=== PATIENT | female | born 1965 | race Caucasian/White ===

== ENCOUNTER → 2016-08-04 | Outpatient (CLI) | payer OTHER ==
[2016-08-04 08:05] LABS: Basophils % (A) 1 %; CH 29.9; CHCM 33.3; Eosinophils # (A) 0.2 k/uL (0-0.7); Eosinophils % (A) 3 %; HCT 40.8 % (34.0-46.0); HGB 13.2 gm/dL (11.4-16.0); Luc # (Auto) 0.15; Luc % (Auto) 3; Lymphocytes # (A) 1.8 k/uL (1.0-4.8); Lymphocytes % (A) 32 %; MCH 29.1 pg (25.0-35.0); MCHC 32.3 g/dL (31.0-37.0); MCV 90.1 fL (80.0-100.0); Mean Platelet Volume 8.8; Monocytes # (A) 0.3 k/uL (0-1.0); Monocytes % (A) 6 %; Neutrophils # (A) 3.2 k/uL (1.3-7.7); Neutrophils % (A) 56 %; RBC 4.53 m/uL (3.80-5.40); RDW 13.1 % (11.5-15.5); WBC 5.7 k/uL (3.8-10.6); WBC (Perox) 5.89
[2016-08-04 08:22] LABS: ALT 57 U/L (9-52); AST 33 U/L (14-36); Alkaline Phosphatase 47 U/L (38-126); Anion Gap 12 mmol/L; Blood Urea Nitrogen 17 mg/dL (7-17); Calcium 9.1 mg/dL (8.4-10.2); Carbon Dioxide 25 mmol/L (22-30); Chloride 106 mmol/L (98-107); Cholesterol 229 mg/dL (<200); Glucose 128 mg/dL (74-99); HDL Cholesterol 55 mg/dL (40-60); Non-African American GFR(MDRD) >60 (>60 ml/min/1.73 sqM); Sodium 143 mmol/L (137-145); Total Bilirubin 0.7 mg/dL (0.2-1.3); Total Protein 6.8 g/dL (6.3-8.2); Triglycerides 187 mg/dL (<150)
== END | disposition home or self-care (01) ==
LOC: LABWHC1 07:31
PROVIDERS: ATTEND Family Medicine
DX: I10 Essential (primary) hypertension (principal); Z13.220 Encounter for screening for lipoid disorders
CPT/HCPCS: 36415; 80053; 80061; 84443; 85025

== ENCOUNTER 2017-04-02 11:56 | Day surgery (SDC) | payer BC, OTHER ==
[2017-03-31 09:43] VITALS: BMI 29.5
[~2017-04-02 11:56] MED LIST: LACTATED RINGERS 1,000 ML IV SCH
[2017-04-02 12:17] VITALS: TEMP 97.1
[2017-04-02] MEDS ORDERED: LIDOCAINE 1% 20 ML VIAL (10MG/ML) FOR IV START INTRADERMA ONE (12:25)
[2017-04-02] MEDS ORDERED: MIDAZOLAM 2 MG/2 ML VIAL ONE (12:30)
[2017-04-02] MEDS ORDERED: PROPOFOL 10 MG/ML 20 ML VIAL IV ONE (12:30)
[2017-04-02] MEDS ORDERED: LIDOCAINE 1% INJ 10MG/ML (20 ML MDV) ONE (12:30)
--- NOTE | 2017-04-02 12:34 | P.GSHP ---
History of Present Illness H&P Date: 04/02/17 Chief Complaint: Colon cancer screening Patient here today for colonoscopy. She has never had 1 previously. No bowel related complaints. No family history of colon cancer. Past Medical History Past Medical History: Hypertension History of Any Multi-Drug Resistant Organisms: None Reported Past Surgical History: Uterine Ablation Past Anesthesia/Blood Transfusion Reactions: Previous Problems w/ Anesthesia Additional Past Anesthesia/Blood Transfusion Reaction / Comment(s): anxious prior to procedure Smoking Status: Never smoker - Past Family History Mother Family Medical History: No Reported History Medications and Allergies Home Medications Medication Instructions Recorded Confirmed Type Cholecalciferol [Vitamin D3] 1,000 unit PO DAILY 03/31/17 04/02/17 History Longevity Supplement 1 tab PO DAILY 03/31/17 History Metoprolol Tartrate [Lopressor] 25 mg PO QAM 03/31/17 04/02/17 History Allergies Allergy/AdvReac Type Severity Reaction Status Date / Time No Known Allergies Allergy Verified 03/31/17 09:38 Surgical - Exam Vital Signs Temp Pulse Resp BP Pulse Ox 97.1 F L 70 16 181/90 94 L 04/02/17 12:16 04/02/17 12:16 04/02/17 12:16 04/02/17 12:16 04/02/17 12:16 Physical exam: General: Well-developed, well-nourished HEENT: Normocephalic, sclerae nonicteric Abdomen: Nontender, nondistended Extremities: No edema Neuro: Alert and oriented Assessment and Plan (1) Colon cancer screening Narrative/Plan: Will proceed with colonoscopy at this time. Current Visit: Yes Status: Acute Code(s): Z12.11 - ENCOUNTER FOR SCREENING FOR MALIGNANT NEOPLASM OF COLON SNOMED Code(s): 380637613
--- NOTE | 2017-04-02 12:52 | P.PCN ---
Date of Procedure: 04/02/17 Procedure(s) Performed: PREOPERATIVE DIAGNOSIS: Screening POSTOPERATIVE DIAGNOSIS: Mild diverticulosis PROCEDURE: Colonoscopy ANESTHESIA: MAC SURGEON: Kenny Morales M.D. SPECIMENS: None ENDOSCOPIC PROCEDURE: The patient was placed on the endoscopy table in the left decubitus position. The Olympus colonoscope was inserted into the anus and passed under direct visualization to the base of the cecum. The appendiceal orifice was visualized. From that point the scope was slowly withdrawn inspecting all surfaces carefully. There were no neoplastic inflammatory or polypoid lesions throughout the cecum, ascending, transverse, descending, sigmoid and rectum. There was mild diverticulosis noted throughout the colon. Digital rectal examination was normal. The patient was taken to the recovery room in stable condition per anesthesia guidelines. RECOMMENDATIONS: Increase fiber. Follow-up colonoscopy in 10 years.
[2017-04-02 13:03] VITALS: RESP 16
[2017-04-02 13:06] VITALS: BP 139/89; PULSE 93
== END 2017-04-02 13:59 | disposition home or self-care (01) ==
LOC: ORWHC2ENDO 11:56
PROVIDERS: ATTEND Surgery
DX: Z12.11 Encounter for screening for malignant neoplasm of colon (principal); K57.30 Diverticulosis of large intestine without perforation or abscess without bleeding; I10 Essential (primary) hypertension; Z79.899 Other long term (current) drug therapy
CPT/HCPCS: 81025; J2250; J2001; J2704; G0121; 45380

== ENCOUNTER → 2018-03-22 | Outpatient (CLI) | payer BC ==
[2018-03-22 15:21] LABS: Basophils % (A) 1 %; Eosinophils # (A) 0.2 k/uL (0-0.7); Eosinophils % (A) 3 %; HCT 42.2 % (34.0-46.0); HGB 13.6 gm/dL (11.4-16.0); Lymphocytes # (A) 2.1 k/uL (1.0-4.8); Lymphocytes % (A) 34 %; MCH 29.3 pg (25.0-35.0); MCHC 32.3 g/dL (31.0-37.0); MCV 90.8 fL (80.0-100.0); Mean Platelet Volume 8.9; Monocytes # (A) 0.3 k/uL (0-1.0); Monocytes % (A) 5 %; Neutrophils # (A) 3.6 k/uL (1.3-7.7); Neutrophils % (A) 57 %; Platelet Count 191 k/uL (150-450); RBC 4.65 m/uL (3.80-5.40); RDW 12.6 % (11.5-15.5); WBC 6.3 k/uL (3.8-10.6)
[2018-03-22 23:30] LABS: Hemoglobin A1C 6.5 % (4.0-6.0)
== END | disposition home or self-care (01) ==
LOC: LABWHC1 14:30
PROVIDERS: ATTEND Family Medicine
DX: I10 Essential (primary) hypertension (principal); R73.9 Hyperglycemia, unspecified
CPT/HCPCS: 36415; 83036; 85025

== ENCOUNTER → 2018-03-22 | Outpatient (CLI) | payer BC ==
[2018-03-22 13:48] VITALS: BP 146/86; PULSE 65; TEMP 97.8; BMI 29.8
--- NOTE | 2018-03-22 16:34 | P.HPOB ---
History of Present Illness H&P Date: 03/22/18 Chief Complaint: The patient is here for her routine gynecologic exam and mammogram. This is a 53-year-old with an LMP of 2010. The patient has been an amenorrheic since her endometrial ablation in 2010. The patient is without gynecologic complaints. Her 's status post vasectomy. Review of Systems The patient's weight has been stable over the last year. She denies respiratory , cardiac, or G.I. problems. 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 She is status post endometrial ablation in 2010 with resulting amenorrhea. History of Any Multi-Drug Resistant Organisms: None Reported Past Surgical History: Uterine Ablation (2010) Additional Past Surgical History / Comment(s): D&C. Past Anesthesia/Blood Transfusion Reactions: Previous Problems w/ Anesthesia Additional Past Anesthesia/Blood Transfusion Reaction / Comment(s): anxious prior to procedure Past Psychological History: No Psychological Hx Reported Smoking Status: Never smoker Past Alcohol Use History: Occasional (10 per week) Past Drug Use History: None Reported Additional History: She has been since 1989. She works at [employer]. - Past Family History Mother Family Medical History: No Reported History Father Family Medical History: CVA/TIA Brother(s) Family Medical History: Diabetes Mellitus, Myocardial Infarction ([place]) Medications and Allergies Home Medications Medication Instructions Recorded Confirmed Type Longevity Supplement 1 tab PO DAILY 03/31/17 03/22/18 History Metoprolol Tartrate [Lopressor] 25 mg PO QAM 03/31/17 03/22/18 History Calcium Carbonate [Calcium] mg PO DAILY 03/22/18 History Multivitamin [Multivitamins Adult tab PO DAILY 03/22/18 History Gummies] Vit B Complx C/Folic Acid/Zinc PO DAILY 03/22/18 History [Renaplex Tablet] Allergies Allergy/AdvReac Type Severity Reaction Status Date / Time No Known Allergies Allergy Verified 03/22/18 13:44 Exam Vital Signs Temp Pulse BP 03/22/18 13:45 97.8 F 65 146/86 Intake and Output 03/22/18 03/22/18 03/22/18 06:59 14:59 22:59 Other: Weight 78.925 kg Height 5'4", weight 174 pounds, BMI 29.9. This is a well-developed well-nourished white female who is alert and oriented times 3 in no acute distress. HEENT: Within normal limits. NECK: Supple without mass or thyromegaly. CHEST AND LUNGS: Clear to auscultation. HEART: Regular rate and rhythm. BREASTS: Are without mass or discharge. AXILLARY EXAM: Negative for adenopathy. BACK: Negative for CVA tenderness. ABDOMEN: Soft, nontender, without palpable masses. PELVIC EXAM: Normal external genitalia. Cervix and vagina appear normal. There is no unusual discharge. There is no evidence of prolapse. The uterus is midposition, nongravid size and nontender. There are no palpable adnexal masses or tenderness. RECTAL EXAM: rectovaginal exam is negative for mass or tenderness and is negative for occult blood. EXTREMITIES: Nontender. IMPRESSION: 1. 53-year-old perimenopausal female whose is status post vasectomy with normal gynecologic exam. 2. The patient has been amenorrheic since her ablation in 2010. PLAN: 1. Pap smear was deferred since her last one was negative less than 2 years ago. 2. Self breast awareness was discussed with the patient. 3. Screening mammogram will be done today. 4. Osteoporosis prevention was discussed. 5. Lab studies will be done through Dr. Kirstin Morales. She has the order slip for this. 6. She will return one year.
--- NOTE | 2018-03-24 09:55 | MM ---
Reason for exam: screening (asymptomatic). Last mammogram was performed 2 years ago. Physical Findings: A clinical breast exam by your physician is recommended on an annual basis and results should be correlated with mammographic findings. MG 3D Screening Mammo W/Cad Bilateral CC and MLO view(s) were taken. Prior study comparison: March 31, 2016, bilateral MG 3d screening mammo w/cad. January 19, 2013, bilateral digital screening mammo w/CAD. The breast tissue is heterogeneously dense. This may lower the sensitivity of mammography. Stable small area of fat necrosis calcifications on the left. No significant changes when compared with prior studies. ASSESSMENT: Negative, BI-RAD 1 RECOMMENDATION: Routine screening mammogram of both breasts in 1 year.
== END | disposition home or self-care (01) ==
LOC: WWCWWP 13:13
PROVIDERS: ATTEND Obstetrics & Gynecology
DX: Z12.31 Encounter for screening mammogram for malignant neoplasm of breast (principal)
CPT/HCPCS: 77063; 77067

== ENCOUNTER → 2018-12-01 | Outpatient (CLI) | payer BC ==
--- NOTE | 2018-12-01 11:28 | US ---
EXAMINATION TYPE: US gallbladder DATE OF EXAM: 12/01/2018 COMPARISON: CT 08/25/2012 CLINICAL HISTORY: R10.11 Right upper quadrant pain. GERD, RUQ pain after eating, digestive issues EXAM MEASUREMENTS: Liver Length: 17.6 cm Gallbladder Wall: 0.1 cm CBD: 0.3 cm Right Kidney: 9.8 x 4.2 x 4.5 cm Pancreas: There is inhomogeneity of the pancreas with slight downstream ductal prominence marked on image 4/56. This is seen within the pancreatic body. Liver: measuring upper limits of normal. There is increased echogenicity of the hepatic parenchyma with diminished visualization of the portal triads most commonly relating to hepatic steatosis and li miting evaluation for underlying hepatic masses. Gallbladder: wnl Evidence for sonographic Vines's sign: No CBD: wnl, distal portion obscured bowel gas Right Kidney: No hydronephrosis or masses seen IMPRESSION: 1. Inhomogeneity within the pancreatic body and slight ductal prominence. Correlate with serum amylas e and lipase and CA-19-9. CT pancreatic mass protocol could further evaluate for pancreatitis or unde rlying pancreatic mass. 2. Sonographic findings most commonly related to hepatic steatosis appearing moderate in degree.
== END | disposition home or self-care (01) ==
LOC: RADUSWWP 10:45
PROVIDERS: ATTEND Family Medicine
DX: R10.11 Right upper quadrant pain (principal)
CPT/HCPCS: 76705

== ENCOUNTER → 2021-01-22 | Outpatient (CLI) | payer BC ==
--- NOTE | 2021-01-24 12:38 | MM ---
Reason for exam: screening (asymptomatic). Last mammogram was performed 2 years and 10 months ago. Physical Findings: A clinical breast exam by your physician is recommended on an annual basis and results should be correlated with mammographic findings. MG 3D Screening Mammo W/Cad Bilateral CC and MLO view(s) were taken. Prior study comparison: March 22, 2018, bilateral MG 3d screening mammo w/cad. The breast tissue is heterogeneously dense. This may lower the sensitivity of mammography. Stable course grouped calcifications left breast. No significant changes when compared with prior studies. ASSESSMENT: Negative, BI-RAD 1 RECOMMENDATION: Routine screening mammogram of both breasts in 1 year.
== END | disposition home or self-care (01) ==
LOC: RADMAMWWP 09:27
PROVIDERS: ATTEND Obstetrics & Gynecology
DX: Z12.31 Encounter for screening mammogram for malignant neoplasm of breast (principal)
CPT/HCPCS: 77063; 77067

== ENCOUNTER → 2021-01-22 | Outpatient (CLI) | payer BC ==
[2021-01-22 08:24] VITALS: BP 150/93; PULSE 54; RESP 14; TEMP 98.2
--- NOTE | 2021-01-22 09:48 | P.HPOB ---
History of Present Illness H&P Date: 01/22/21 Chief Complaint: The patient is here for her routine gynecologic exam and ma mmogram. This is a 56-year-old with an LMP of 2010. The patient's is status post vasectomy. She is status post endometrial ablation in 2010 and has been amenorrheic since then except for some pink spotting that she had 2 days ago. She states she was not having any unusual pain at the time, but 1 hour later had a small amount of cramping. She has not had bleeding since then. She denies any significant hot flashes and has not had any significant hot flashes since her endometrial ablation. She states she was not sexually active around the time when she had the spotting. She is otherwise without gynecologic complaints. Review of Systems She is down about 2 pounds from her weight 3 years ago. She denies respiratory or cardiac problems. GI: Occasional heartburn with certain types of food including flour tortillas. She states she has been trying to eat less gluten and this seems to be helpful for the heartburn. 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 She has been amenorrheic following her endometrial ablation in 2010. History of Any Multi-Drug Resistant Organisms: None Reported Past Surgical History: Uterine Ablation Additional Past Surgical History / Comment(s): Endometrial ablation in 2010. D&C 1996. Colonoscop 2015(next after 10y) Past Anesthesia/Blood Transfusion Reactions: Previous Problems w/ Anesthesia Additional Past Anesthesia/Blood Transfusion Reaction / Comment(s): anxious prior to procedure Past Psychological History: No Psychological Hx Reported Smoking Status: Never smoker Past Alcohol Use History: Occasional (About 10 per week) Past Drug Use History: None Reported Additional History: She is been since 1989 and works at [employer]. - Past Family History Mother Family Medical History: Diabetes Mellitus Father Family Medical History: CVA/TIA Additional Family Medical History / Comment(s): . Brother(s) Family Medical History: Diabetes Mellitus, Myocardial Infarction ([place]) Medications and Allergies Home Medications Medication Instructions Recorded Confirmed Type Metoprolol Tartrate [Lopressor] 100 mg PO QAM 03/31/17 01/22/21 History Multivitamin [Multivitamins Adult 1 tab PO DAILY 10/16/18 08/18/21 History Gummies] Rosuvastatin [Crestor] 10 mg PO DAILY 01/22/21 01/22/21 History Allergies Allergy/AdvReac Type Severity Reaction Status Date / Time No Known Allergies Allergy Verified 01/22/21 08:09 Exam Vital Signs Temp Pulse Resp BP 01/22/21 08:09 98.2 F 54 L 14 150/93 Intake and Output 01/21/21 01/22/21 01/22/21 22:59 06:59 14:59 Other: Weight 78.018 kg Height 5 feet 4 inches, weight 172 pounds, BMI 29.5. This is a well-developed well-nourished white female who is alert and oriented times 3 in no acute distress. HEENT: Within normal limits. NECK: Supple without mass or thyromegaly. CHEST AND LUNGS: Clear to auscultation. HEART: Regular rate and rhythm. BREASTS: Are without mass or discharge. AXILLARY EXAM: Negative for adenopathy. BACK: Negative for CVA tenderness. ABDOMEN: Soft, nontender, without palpable masses. PELVIC EXAM: Normal external genitalia. Cervix and vagina appear normal. There is no unusual discharge and no blood visible in the vagina. There is no evidence of prolapse. The uterus is midposition, nongravid size and nontender. There are no palpable adnexal masses or tenderness. RECTAL EXAM: Rectovaginal exam is negative for mass or tenderness and is negative for occult blood. EXTREMITIES: Nontender. IMPRESSION: 1. 56-year-old perimenopausal female whose is status post vasectomy, with brief episode of light vaginal spotting following 10 years of amenorrhea and endometrial ablation in 2010. Differential diagnosis will include postmenopausal bleeding and premenopausal post ablation spotting. Her menopausal status his or difficult to determine since we are unable to look at menstrual periods after the ablation. 2. Elevated blood pressure with history of chronic hypertension. PLAN: 1. Pap smear cotest was performed. 2. Self breast awareness was discussed with the patient. We have also discussed symptoms associated with inflammatory breast cancer. 3. Screening mammogram will be done today. 4. We have had a long discussion regarding the brief episode of vaginal spotting and the different possibilities. Blood tests will include FSH and estradiol which we will used to determine if she is postmenopausal. Pelvic ultrasound was also recommended and the order slip was given to the patient for this. We will use this to measure endometrial thickness. She understands there can be some irregularities noted because of the previous endometrial ablation she has had. If we determine she is postmenopausal and the endometrial thickness is greater than 4 mm, we will plan on doing an endometrial biopsy. She understands that she should call if she is having recurring bleeding or very heavy bleeding. 5. We have discussed her elevated blood pressure. I have recommended that she check her blood pressure on a regular basis and follow up with Dr. Morales for blood pressure elevations. 6. I have recommended this she decrease alcohol intake especially because she is trying to lose weight and because of her family history of diabetes. I have recommended that she try to drink more than 3 alcoholic beverages per day, any day and no more than 6 alcoholic beverages per week. 7. She has not received a Covid vaccination. She states she had Covid in 2020. She understands that the CDC does recommend that she be vaccinated even if she did previously have Covid. 8. She was advised to return in one year for her annual well woman exam and as needed.
[2021-01-22 18:55] LABS: Estradiol 17.2 pg/mL
== END | disposition home or self-care (01) ==
LOC: WWCWWP 07:51
PROVIDERS: ATTEND Obstetrics & Gynecology
DX: N95.0 Postmenopausal bleeding (principal); N91.1 Secondary amenorrhea; N93.9 Abnormal uterine and vaginal bleeding, unspecified; I10 Essential (primary) hypertension; Z78.0 Asymptomatic menopausal state
CPT/HCPCS: 36415; 82670; 83001

== ENCOUNTER → 2021-01-29 | Outpatient (CLI) | payer BC ==
--- NOTE | 2021-01-30 07:59 | US ---
EXAMINATION TYPE: US pelvis complete transvag DATE OF EXAM: 01/29/2021 COMPARISON: NONE CLINICAL HISTORY: 56-year-old female N95.0 PMB. Spotty, intermittent cramping, ablation TECHNIQUE: Transvaginal (TV) and Transabdominal (TA) . Transabdominal sonographic images of the pel vis were acquired. Transvaginal sonographic images were medically necessary to better assess the fol lowing anatomy: endometrium and ovaries Date of LMP: unknown FINDINGS: EXAM MEASUREMENTS: Uterus: 6.5 x 3.1 x 3.9 cm Endometrial Stripe: 0.2 cm Right Ovary: unable to visualize Left Ovary: 2.1 x 1.2 x 2.0 cm 1. Uterus: Anteverted. The myometrium is heterogeneous. Cervical nabothian cysts noted. Hypoechoic area (fibroid) anterior body = 1.2 x 1.1 x 1.2cm appears primarily intramural. Scattered myometrial calcifications could represent small calcified fibroids. A solitary 6 mm posterior uterine body myome trial cyst versus vascular space may be present. 2. Endometrium: appears wnl as visualized 3. Right Ovary: Obscured by overlying bowel gas 4. Left Ovary: wnl 5. Bilateral Adnexa: wnl 6. Posterior cul-de-sac: wnl IMPRESSION: 1. A 1.2 cm focal fibroid along the mid uterine body appears primarily intramural. 2. A 6 mm vascular versus cystic space along the posterior uterine body. Etiology is unclear. This do es not appear to be contiguous with the endometrium. Consider 3 month follow-up ultrasound to reasses s. 3. Otherwise, the endometrial stripe appears thin at 2 mm. 4. Unable to visualize the right ovary.
--- NOTE | 2021-01-30 14:57 | P.PN ---
Progress Note - Text Progress Note Date: 01/30/21 OUTPATIENT FOLLOW-UP NOTE TEST(S)/RESULTS: Pelvic ultrasound done on 01/29/2021 showed a 1.2 cm anterior fibroid, no adnexal masses, and normal endometrial thickness of 0.2 cm. A small cystic area within the myometrium was noted measuring 6 mm and was felt to possibly represent a cyst or a vascular space. METHOD OF NOTIFICATION: The patient was notified by phone. PATIENT COMMENTS: The patient has not had any more spotting after the initial episode. DIAGNOSIS: Small postmenopausal spotting following years of amenorrhea after endometrial ablation. Blood testing indicates that hormones are in the menopausal range. Small anterior fibroid and normal endometrial thickness. DISCUSSION: We have discussed how the ultrasound does not indicate any form of endometrial hyperplasia and the endometrium appears thin. No further workup at this time. The patient was instructed to call if she has recurrent vaginal bleeding, even if it is spotting. I have reviewed the ultrasound images with the radiologist who read the ultrasound and the small 6 mm area does not appear suspicious or very concerning. PLAN: No further workup unless the patient has recurring bleeding or problems.
== END | disposition home or self-care (01) ==
LOC: RADUSWWP 16:23
PROVIDERS: ATTEND Obstetrics & Gynecology
DX: D25.9 Leiomyoma of uterus, unspecified (principal)
CPT/HCPCS: 76830; 76856

== ENCOUNTER → 2022-12-03 | Outpatient (CLI) | payer BC ==
[2022-12-03 17:01] LABS: Basophils # (A) 0.06 X 10*3/uL (0.00-0.10); Basophils % (A) 0.9 %; Eosinophils # (A) 0.14 X 10*3/uL (0.04-0.35); Eosinophils % (A) 2.2 %; HCT 43.8 % (37.2-46.3); HGB 14.3 d/dL (12.0-15.0); Lymphocytes # (A) 2.48 X 10*3/uL (0.90-5.00); Lymphocytes % (A) 38.8 %; MCH 28.9 pg (27.0-32.0); MCHC 32.6 d/dL (32.0-37.0); MCV 88.5 FL (80.0-97.0); Mean Platelet Volume 12.5 FL (9.5-12.2); Monocytes # (A) 0.46 X 10*3/uL (0.20-1.00); Monocytes % (A) 7.2 %; NRBC Per 100 WBC 0 X 10*3/uL (0.00-0.01); Neutrophils # (A) 3.25 X 10*3/uL (1.80-7.70); Neutrophils % (A) 50.7 %; Platelet Count 184 X 10*3/uL (140-440); RBC 4.95 X 10*6/uL (4.10-5.20); RDW 12.2 % (11.5-14.5)
[2022-12-03 17:10] LABS: Albumin 4.9 d/dL (3.8-4.9); Protein, Total 7.2 d/dL (6.2-8.2)
[2022-12-03 17:17] LABS: ALT 58 U/L (8-44); AST 34 U/L (13-35); Albumin 4.9 d/dL (3.8-4.9); Albumin/Globulin Ratio 2.13 Ratio (1.60-3.17); Alkaline Phosphatase 52 U/L (41-126); BUN/Creat Ratio 18.25 Ratio (12.00-20.00); Blood Urea Nitrogen 14.6 mg/dL (9.0-27.0); Calcium 10.3 mg/dL (8.7-10.3); Carbon Dioxide 25.7 mmol/L (21.6-31.8); Chloride 103 mmol/L (96-109); Globulin 2.3 d/dL (1.6-3.3); Glucose 123 mg/dL (70-110); Iron 78 UG/DL (50-170); Sodium 142 mmol/L (135-145); Total Bilirubin 0.4 mg/dL (0.3-1.2); Total Iron Binding Capacity 392 UG/DL (228-460); Total Protein 7.2 d/dL (6.2-8.2)
[2022-12-03 17:30] LABS: Ceruloplasmin 22.3 mg/dL (20.0-60.0)
[2022-12-03 17:46] LABS: Hepatitis B Surface Antigen Nonreactive; Hepatitis C IgG Antibody Nonreactive
[2022-12-04 20:31] LABS: Gamma Globulin 0.71 d/dL (0.70-1.50)
== END | disposition home or self-care (01) ==
LOC: LABWHC1 09:55
PROVIDERS: ATTEND Internal Medicine Gastroenterology
DX: R74.8 Abnormal levels of other serum enzymes (principal)
CPT/HCPCS: 36415; 80053; 82103; 82390; 82728; 83516; 83540; 83550; 84165; 85025; 86038; 86803; 87340

== ENCOUNTER → 2023-02-18 | Outpatient (CLI) | payer BC ==
--- NOTE | 2023-02-19 22:58 | MM ---
Reason for Exam: Screening (asymptomatic). Last mammogram was performed 2 year(s) and 1 month(s) ago. Patient History: Menarche at age 13. First Full-Term at age 30. Postmenopausal. Patient has history of breast feeding. Risk Values: Dalila 5 year model risk: 1.4%. NCI Lifetime model risk: 8.7%. Prior Study Comparison: 03/31/2016 Bilateral Screening Mammogram, [facility]. 03/22/2018 Bilateral Screening Mammogram, [facility]. 01/22/2021 Bilateral Screening Mammogram, [facility]. Tissue Density: The breast tissue is heterogeneously dense. This may lower the sensitivity of mammography. Findings: Analyzed By CAD. Unchanged bilateral asymmetric densities. Grouped coarse calcifications on the left are unchanged. There is no suspicious group of microcalcifications or new suspicious mass in either breast. Overall Assessment: Benign, BI-RAD 2 Management: Screening Mammogram of both breasts in 1 year. . Patient should continue monthly self-breast exams. A clinical breast exam by your physician is recommended on an annual basis. This exam should not preclude additional follow-up of suspicious palpable abnormalities. Note on Dalila scores and lifetime risk: 1. A Dalila score greater than 3% is considered moderate risk. If this is the case, consider specialist referral to assess eligibility for a risk reducing agent. 2. If overall lifetime risk for the development of breast cancer is 20% or higher, the patient may qualify for future screening with alternating mammogram and breast MRI. Electronically signed and approved by: Bethel Steve M.D. Radiologist
== END | disposition home or self-care (01) ==
LOC: RADMAMWWP 15:52
PROVIDERS: ATTEND Family Medicine
DX: Z12.31 Encounter for screening mammogram for malignant neoplasm of breast (principal); Z78.0 Asymptomatic menopausal state
CPT/HCPCS: 77063; 77067

== ENCOUNTER → 2023-08-11 | Outpatient (CLI) | payer BC ==
--- NOTE | 2023-08-12 14:26 | MR ---
EXAMINATION TYPE: MR knee LT wo con DATE OF EXAM: 08/11/2023 COMPARISON: Outside left knee x-ray July 14, 2023 HISTORY: Left knee medial pain and swelling on and off for 3 months TECHNIQUE: Multiplanar, multisequence images of the knee is performed without IV contrast. FINDINGS: MEDIAL MENISCUS: Medial extrusion of medial meniscus. Triangular shaped increased signal posterior ho rn does extends into central body. There is likely extension to inferior articular surface coronal im age 24. LATERAL MENISCUS: Anterior and posterior horns are intact without tear. CRUCIATE LIGAMENTS: The anterior and posterior cruciate ligaments are intact and unremarkable. COLLATERAL LIGAMENTS: The medial collateral ligament and lateral collateral ligament complex are inta ct and unremarkable. EXTENSOR MECHANISM: Visualized quadriceps and patellar tendons are intact. EFFUSION: Small size suprapatellar joint effusion. POPLITEAL CYST: No popliteal/serrano cyst. TRICOMPARTMENT SPACES: Mild tricompartment joint space loss. No significant spurring. CARTILAGE: Tricompartment articular cartilage is preserved. BONE MARROW SIGNAL: No focal abnormal marrow signal is appreciated. OTHER: No additional significant abnormality is appreciated. IMPRESSION: 1. At least intrasubstance but suspected full-thickness tear of the medial meniscus involving the ora tral body and posterior horn. 2. Mild tricompartment degenerative changes as detailed above. 3. Small-sized suprapatellar joint effusion.
== END | disposition home or self-care (01) ==
LOC: RADMRIMAIN 09:00
PROVIDERS: ATTEND Orthopaedic Surgery
DX: M17.12 Unilateral primary osteoarthritis, left knee (principal); M25.462 Effusion, left knee; M23.322 Other meniscus derangements, posterior horn of medial meniscus, left knee

== ENCOUNTER → 2023-11-12 | Outpatient (CLI) | payer BC ==
[2023-11-12 11:03] LABS: Basophils # (A) 0.05 X 10*3/uL (0.00-0.10); Basophils % (A) 0.8 %; Eosinophils # (A) 0.18 X 10*3/uL (0.04-0.35); Eosinophils % (A) 2.7 %; HCT 40.2 % (37.2-46.3); HGB 13.1 g/dL (12.0-15.0); Lymphocytes # (A) 2.75 X 10*3/uL (0.90-5.00); Lymphocytes % (A) 41.9 %; MCH 29.4 pg (27.0-32.0); MCHC 32.6 g/dL (32.0-37.0); MCV 90.1 FL (80.0-97.0); Mean Platelet Volume 12.5 FL (9.5-12.2); Monocytes # (A) 0.49 X 10*3/uL (0.20-1.00); Monocytes % (A) 7.5 %; NRBC Per 100 WBC 0 X 10*3/uL (0.00-0.01); Neutrophils # (A) 3.07 X 10*3/uL (1.80-7.70); Neutrophils % (A) 46.8 %; Platelet Count 156 X 10*3/uL (140-440); RBC 4.46 X 10*6/uL (4.10-5.20); RDW 12.5 % (11.5-14.5); WBC 6.56 X 10*3/uL (4.50-10.00)
[2023-11-12 11:33] LABS: ALT 27 U/L (8-44); AST 25 U/L (13-35); Albumin 4.6 g/dL (3.8-4.9); Albumin/Globulin Ratio 2.19 Ratio (1.60-3.17); Alkaline Phosphatase 45 U/L (41-126); BUN/Creat Ratio 17.75 Ratio (12.00-20.00); Blood Urea Nitrogen 14.2 mg/dL (9.0-27.0); Calcium 9.5 mg/dL (8.7-10.3); Carbon Dioxide 24.2 mmol/L (21.6-31.8); Chloride 105 mmol/L (96-109); Chol/HDL Ratio 2.89 Ratio; Globulin 2.1 g/dL (1.6-3.3); Glucose 119 mg/dL (70-110); LDL Cholesterol,Calculated 80.3 mg/dL (0.0-131.0); Potassium 4.5 mmol/L (3.5-5.5); Sodium 141 mmol/L (135-145); Total Bilirubin 0.3 mg/dL (0.3-1.2); Total Protein 6.7 g/dL (6.2-8.2)
== END | disposition home or self-care (01) ==
LOC: LABWHC1 07:04
PROVIDERS: ATTEND Internal Medicine Gastroenterology
DX: Z13.29 Encounter for screening for other suspected endocrine disorder (principal); I10 Essential (primary) hypertension; E11.9 Type 2 diabetes mellitus without complications; E78.00 Pure hypercholesterolemia, unspecified; R74.8 Abnormal levels of other serum enzymes
CPT/HCPCS: 36415; 80053; 80061; 82043; 82306; 82570; 83036; 84443; 85025

== ENCOUNTER → 2023-12-24 | Day surgery (SDC) | payer BC ==
[2023-12-21 15:39] VITALS: BMI 29.2
--- NOTE | 2023-12-23 08:56 | P.HPOR ---
History of Present Illness H&P Date: 12/23/23 Chief Complaint: Left knee pain The patient is a 58-year-old female presents with progressive left knee pain since June of this year. She's having anterior medial pain worse with weightbearing activities. She notes instability. She's tried medications in addition to an injection with only temporary partial relief of her symptoms. She notes daily pain that limits her. Review of Systems Per HPI Past Medical History Past Medical History: Diabetes Mellitus, Hypertension, Liver Disease Additional Past Medical History / Comment(s): Type 2 diabetes. Fatty liver diagnosed in October 2022-resolved. PAST [employer] MANAGER HISTORY: She has no history of STDs. She has been amenorrheic following her endometrial ablation in 2010.August 2023 shingles-scarring left eye brow History of Any Multi-Drug Resistant Organisms: None Reported Past Surgical History: Uterine Ablation Additional Past Surgical History / Comment(s): Endometrial ablation in 2010. D&C 1996. Colonoscopy 2015(next after 10y) Past Anesthesia/Blood Transfusion Reactions: No Reported Reaction Additional Past Anesthesia/Blood Transfusion Reaction / Comment(s): anxious prior to procedures. no blood transfusion hx Smoking Status: Never smoker - Past Family History Mother Family Medical History: Diabetes Mellitus Father Family Medical History: CVA/TIA Additional Family Medical History / Comment(s): . Brother(s) Family Medical History: Diabetes Mellitus, Myocardial Infarction ([place]) Medications and Allergies Home Medications Medication Instructions Recorded Confirmed Type Rosuvastatin [Crestor] 10 mg PO HS 01/22/21 12/21/23 History Semaglutide [Rybelsus] 7 mg PO DAILY 03/02/23 12/21/23 History Metoprolol Succinate (ER) [Toprol 100 mg PO QAM 12/21/23 12/21/23 History Xl] Allergies Allergy/AdvReac Type Severity Reaction Status Date / Time No Known Allergies Allergy Verified 12/21/23 15:06 Physical Examination - Knee left Appearance: effusion Effusion grade: grade 3 Tenderness with palpation: anterior, medial Pain: throughout ROM Gait: limping ROM: extension: -15 degrees ROM: flexion: 100 degrees Crepitus with motion: Yes Strength: extension: 5/5 Strength: flexion: 5/5 Meniscal tests: medial meniscal tests: positive, medial joint line pain: positive Results Patient is a well-developed well-nourished female approximately 5 foot 4, 162 pounds of morphogenic habitus. HEENT examination is nonfocal, neck is supple. She has painless passive motion of her left hip. Straight leg raise is negative. She's tender about the medial joint line of the left knee. Collaterals stable, Lily was negative, Rebecca's elicits medial pain. Her distal neurovascular appears intact in the lower extremity. She has an antalgic gait pattern. - Diagnostic results Knee MRI: image reviewed (MRI of the left knee shows evidence of a posterior medial meniscal tear.) Assessment and Plan Assessment: Left knee internal derangementsymptomatic medial meniscal tear Plan: I talked to the patient at length regarding her condition along with treatment options. At this point she is quite symptomatic having pain and mechanical symptoms despite attempted conservative measures. After a thorough discussion she opts to proceed with surgery. We will plan to proceed with left knee arthroscopy with probable partial medial meniscectomy. We will likely perform as an outpatient procedure. Risks and benefits were discussed at length in layman's terms.
[~2023-12-24] MED LIST changes: +HYDROmorphone (PF) 1 MG/ML ONE; +KETOROLAC 30 MG/ML 1 ML VIAL ONE; -LACTATED RINGERS 1,000 ML IV SCH; +LIDOCAINE 1% (10MG/ML) FOR IV START INTRADERMA PRN; +LIDOCAINE 1% INJ 10MG/ML (20 ML MDV) ONE; +MIDAZOLAM 2 MG/2 ML VIAL IV PRN; +MIDAZOLAM 2 MG/2 ML VIAL ONE; +PROPOFOL 10 MG/ML 20 ML VIAL IV ONE; +SUCCINYLCHOLINE CHLORIDE 200 MG/10 ML VIAL IV ONE; +fentaNYL (PF) 50 MCG/ML 2 ML AMP IVP PRN; +fentaNYL (PF) 50 MCG/ML 2 ML AMP ONE
[2023-12-24] MEDS: LACTATED RINGERS 1,000 ML IV SCH (10:45)
[2023-12-24] MEDS: IV FLUID CONTINUATION 1,000 ML IV ONE ×3 (10:45→13:09)
[2023-12-24 10:47] LABS: Glucose,Whole Blood 112 mg/dL (70-110)
[2023-12-24 10:47] LABS: Basophils % (A) 1 %; Eosinophils # (A) 0.2 k/uL (0-0.7); Eosinophils % (A) 2 %; HCT 39.4 % (34.0-46.0); Lymphocytes # (A) 2.1 k/uL (1.0-4.8); Lymphocytes % (A) 34 %; MCH 30.1 pg (25.0-35.0); MCHC 33.1 g/dL (31.0-37.0); MCV 90.9 fL (80.0-100.0); Mean Platelet Volume 9.2; Monocytes # (A) 0.4 k/uL (0-1.0); Monocytes % (A) 6 %; Neutrophils # (A) 3.5 k/uL (1.3-7.7); Neutrophils % (A) 56 %; Platelet Count 184 k/uL (150-450); RBC 4.33 m/uL (3.80-5.40); RDW 12.7 % (11.5-15.5); WBC 6.3 k/uL (3.8-10.6)
[2023-12-24] MEDS: DEXAMETHASONE SOD PHOSPHATE 4 MG/ML 1 ML VIAL IV ONE (10:47)
[2023-12-24] MEDS: ONDANSETRON 4 MG/2 ML VIAL IVP ONE (10:48)
[2023-12-24 11:11] LABS: ALT 31 U/L (4-34); AST 33 U/L (14-36); African American GFR (CKD) >90 (>60 ml/min/1.73 sqM); Albumin 4.4 g/dL (3.5-5.0); Alkaline Phosphatase 41 U/L (38-126); Anion Gap 4 mmol/L; Blood Urea Nitrogen 13 mg/dL (7-17); Calcium 9.2 mg/dL (8.4-10.2); Carbon Dioxide 28 mmol/L (22-30); Chloride 109 mmol/L (98-107); Glucose 115 mg/dL (74-99); Non-African American GFR(CKD) >90 (>60 ml/min/1.73 sqM); Potassium 4.8 mmol/L (3.5-5.1); Sodium 141 mmol/L (137-145); Total Bilirubin 0.5 mg/dL (0.2-1.3); Total Protein 6.7 g/dL (6.3-8.2)
[2023-12-24] MEDS: EPINEPHrine (PF) 1 ML in SODIUM CHLORIDE 0.9% IRRIGATIO 3,000 ML IRRIGATION ONE (11:37)
[2023-12-24 12:34] VITALS: RESP 16; TEMP 97.8
[2023-12-24] MEDS: HYDROmorphone 0.5 MG/0.5 ML SYRINGE IVP PRN (12:42)
[2023-12-24 13:47] VITALS: PULSE 84
[2023-12-24 13:48] VITALS: BP 163/76
--- NOTE | 2023-12-24 14:16 | P.OP ---
Date of Procedure: 12/24/23 Preoperative Diagnosis: Internal derangement left knee Postoperative Diagnosis: Left knee posterior medial meniscal tear, 4 x 8 mm grade 4 chondral defect distal medial portion medial femoral condyle Procedure(s) Performed: Left knee arthroscopic partial medial meniscectomy/microfracture medial femoral condyle Anesthesia: ELISAA Surgeon: Tu Godinez Estimated Blood Loss (ml): 10 Pathology: none sent Condition: stable Disposition: PACU Indications for Procedure: The patient's a 58-year-old female who presents with progressive left knee pain and mechanical symptoms despite conservative measures. A discussion of the risks and benefits of operative intervention versus continued conservative measures was made with patient. She opted to proceed with surgery. Operative risks to include infection, neurovascular injury, development of blood clots, possible incomplete resolution of symptoms, possible worsening symptoms and need for subsequent procedures was discussed. Informed consent was obtained. Operative Findings: As below Description of Procedure: The patient was brought to the operating room, and after induction of general anesthesia examined the left knee. Collaterals were stable, Lily was negative, and posterior drawer was negative. The left lower extremity was prepped and draped in a normal fashion. A superior lateral portal was made through a 3 mm skin incision superior and lateral to the patella. This was used for outflow. A large effusion was encountered. A lateral portal was made through a 5 mm vertical skin incision lateral to the patella tendon above the joint line. Diagnostic arthroscopy was performed. On inspection of the medial compartment, and oblique tear involving the middle one third of the medial meniscus in the white-junction was noted. This was debrided back to stable base with straight baskets and a motorized shaver. The remaining medial meniscus was stable and intact. Grade 2 chondral changes were noted diffusely on the medial femoral condyle. There was a 4 x 8 mm grade 4 chondral defect on the distal medial portion of the medial femoral condyle. There was a loose chondral flap debrided with a motorized shaver. Microfracture was performed utilizing a motorized bur reaching the subchondral surface down to the bone marrow elements of the medial femoral condyle. On inspection of the notch, the anterior cruciate ligament appeared to be intact. On inspection of the lateral compartment no significant meniscal or cartilage pathology was noted. On inspection of the patellofemoral articulation there was grade 2 chondral changes diffusely.. The gutters were clear debris. The knee was then thoroughly irrigated. The portals were closed with Steri-Strips. A sterile dressing was applied in addition to a compression stocking. The patient was awoken from general anesthesia and transferred to recovery room in good condition. Blood loss was estimated at 10 mL. No complications were incurred.
== END | disposition home or self-care (01) ==
LOC: OR 09:42
PROVIDERS: ATTEND Orthopaedic Surgery
DX: S83.242A Other tear of medial meniscus, current injury, left knee, initial encounter (principal); M94.8X6 Other specified disorders of cartilage, lower leg; I10 Essential (primary) hypertension; E11.69 Type 2 diabetes mellitus with other specified complication; E78.5 Hyperlipidemia, unspecified; K76.0 Fatty (change of) liver, not elsewhere classified; Z79.84 Long term (current) use of oral hypoglycemic drugs; Z79.899 Other long term (current) drug therapy; F41.9 Anxiety disorder, unspecified; X58.XXXA Exposure to other specified factors, initial encounter
CPT/HCPCS: 80053; 85025; 29879; 29881; J2250; J0330; J1100; J0690; J2405; J0171; J2001; J3010; J1885; J1170 ×2; J2704

== ENCOUNTER → 2024-05-17 | Outpatient (CLI) | payer BC ==
--- NOTE | 2024-05-20 00:08 | BD ---
EXAMINATION TYPE: Axial Bone Density DATE OF EXAM: 05/17/2024 CLINICAL HISTORY: 59 years old Female. ICD-10 CODE: Z78.0 Post menopausal , Additional History: Height: 64" Weight: 172lbs FRAX RISK QUESTIONS: Alcohol (3 or more units per day): No Family History (Parent hip fracture): No Glucocorticoids (More than 3mos): No (Ex: prednisone, prednisolone, methylprednisolone, dexamethasone, and hydrocortisone). History of Fracture in Adulthood: No Secondary Osteoporosis: 1. Type 1 Diabetes: No 2. Hyperthyroidism: No 3. Menopause before 45: No 4. Malnutrition: No 5. Chronic liver disease: No Rheumatoid Arthritis: No Current Tobacco Use: No RISK FACTORS HISTORY OF: Hip Fracture (Right/Left): No Spine Fracture: No History of Wrist Fracture: No Surgery to Spine/Hip(right/left)/Wrist (right/left): No MEDICATIONS: Thyroid Medications: No Osteoporosis Medications: No EXAM MEASUREMENTS: Bone mineral densitometry was performed using the Mobile [employer] System. Bone mineral density as measured about the Lumbar spine is: ----- L1-L4(G/cm2): 1.542 T Score Values are as follows: ----- L1: 1.5 ----- L2: 2.3 ----- L3: 2.6 ----- L4: 4.9 ----- L1-L4: 3.0 Z Score Values are as follows: ----- L1: 2.1 ----- L2: 2.9 ----- L3: 3.3 ----- L4: 5.5 ----- L1-L4: 3.6 Baseline @MPH Bone mineral density about the R hip (g/cm2): 1.341 Bone mineral density about the L hip (g/cm2): 1.458 T Score values are as follows: -----R Neck: 1.6 -----L Neck: 2.0 -----R Total: 2.6 -----L Total: 3.6 Z Score values are as follows: -----R Neck: 2.4 -----L Neck: 2.9 -----R Total: 3.2 -----L Total: 4.1 Baseline @MPH FRAX%s: The graph provided illustrates a 4.7% chance for a major osteoporotic fx and a 0.0% chance fo r the hips probability for fx in 10 years time. IMPRESSION: Normal (Values between +1 and -1 indicate normal bone mass). Consider repeating this study in 5 year s or sooner if there is some new clinical indication. NOTE: T-SCORE=SD OF THE YOUNG ADULT MEAN. [facility], , 05/20/2024 12:06 AM
--- NOTE | 2024-05-21 05:17 | MM ---
Reason for Exam: Screening (asymptomatic). Last mammogram was performed 1 year(s) and 3 month(s) ago. Patient History: Menarche at age 13. First Full-Term at age 30. Postmenopausal. Patient has history of breast feeding. Risk Values: Dalila 5 year model risk: 1.5%. NCI Lifetime model risk: 8.5%. Prior Study Comparison: 03/22/2018 Bilateral Screening Mammogram, [facility]. 01/22/2021 Bilateral Screening Mammogram, [facility]. 02/18/2023 Bilateral MG 3D screening mammo w/cad, [facility]. Tissue Density: The breasts are heterogeneously dense, which may obscure small masses. Findings: Analyzed By CAD. The pattern is symmetrical. Coarse calcifications are within the left breast appears stable from comparison. Additional scattered benign punctate calcifications are present bilaterally. No suspicious groups of microcalcifications, spiculated or lobular masses, architectural distortion or other secondary signs of malignancy are mammographically apparent. Overall Assessment: Benign, BI-RAD 2 Management: Screening Mammogram of both breasts in 1 year. A negative mammogram report should not preclude additional follow up of suspicious palpable abnormalities. Patient should continue monthly self breast exam. A clinical breast exam by your physician is recommended on an annual basis and results should be correlated with mammographic findings. Note on Dalila scores and lifetime risk: 1. A Dalila score greater than 3% is considered moderate risk. If this is the case, consider specialist referral to assess eligibility for a risk reducing agent. 2. If overall lifetime risk for the development of breast cancer is 20% or higher, the patient may qualify for future screening with alternating mammogram and breast MRI. [facility], , 05/21/2024 5:14 AM. Electronically signed and approved by: Corey Sosa D.O. Radiologis
== END | disposition home or self-care (01) ==
LOC: RADMAMWWP 15:28
PROVIDERS: ATTEND Family Medicine
DX: Z12.31 Encounter for screening mammogram for malignant neoplasm of breast (principal); R92.333 Mammographic heterogeneous density, bilateral breasts; Z78.0 Asymptomatic menopausal state
CPT/HCPCS: 77063; 77067; 77080

== ENCOUNTER → 2024-11-21 | Outpatient (CLI) | payer BC ==
[2024-11-21 15:01] LABS: Basophils # (A) 0.06 X 10*3/uL (0.00-0.10); Basophils % (A) 0.9 %; Eosinophils # (A) 0.13 X 10*3/uL (0.04-0.35); Eosinophils % (A) 1.9 %; HCT 43.2 % (37.2-46.3); HGB 13.6 g/dL (12.0-15.0); Lymphocytes # (A) 2.48 X 10*3/uL (0.90-5.00); Lymphocytes % (A) 35.8 %; MCH 28.6 pg (27.0-32.0); MCHC 31.5 g/dL (32.0-37.0); MCV 90.8 FL (80.0-97.0); Mean Platelet Volume 12.9 FL (9.5-12.2); Monocytes # (A) 0.58 X 10*3/uL (0.20-1.00); Monocytes % (A) 8.4 %; NRBC Per 100 WBC 0 X 10*3/uL (0.00-0.01); Neutrophils # (A) 3.65 X 10*3/uL (1.80-7.70); Neutrophils % (A) 52.7 %; Platelet Count 181 X 10*3/uL (140-440); RBC 4.76 X 10*6/uL (4.10-5.20); RDW 12.5 % (11.5-14.5); WBC 6.92 X 10*3/uL (4.50-10.00)
[2024-11-21 15:50] LABS: ALT 40 U/L (8-44); AST 32 U/L (13-35); Albumin 4.6 g/dL (3.8-4.9); Albumin/Globulin Ratio 1.84 Ratio (1.60-3.17); Alkaline Phosphatase 49 U/L (41-126); BUN/Creat Ratio 20.88 Ratio (12.00-20.00); Blood Urea Nitrogen 16.7 mg/dL (9.0-27.0); Calcium 9.4 mg/dL (8.7-10.3); Carbon Dioxide 22.4 mmol/L (21.6-31.8); Chloride 105 mmol/L (96-109); Chol/HDL Ratio 3.01 Ratio; Globulin 2.5 g/dL (1.6-3.3); Glucose 110 mg/dL (70-110); Potassium 4.4 mmol/L (3.5-5.5); Sodium 140 mmol/L (135-145); Total Bilirubin 0.4 mg/dL (0.3-1.2); Total Protein 7.1 g/dL (6.2-8.2)
== END | disposition home or self-care (01) ==
LOC: LABWHC1 08:09
PROVIDERS: ATTEND Family Medicine
DX: Z00.00 Encounter for general adult medical examination without abnormal findings (principal); Z13.220 Encounter for screening for lipoid disorders; Z13.228 Encounter for screening for other metabolic disorders; E11.9 Type 2 diabetes mellitus without complications; E55.9 Vitamin D deficiency, unspecified; E78.5 Hyperlipidemia, unspecified; I10 Essential (primary) hypertension
CPT/HCPCS: 36415; 80053; 80061; 82306; 83036; 84443; 85025